=== PATIENT | male | born 2000 | race Caucasian/White ===

== ENCOUNTER 2022-03-02 07:49 | Emergency (ER) | payer OTHER ==
[2022-03-02] MEDS ORDERED: CEPHALEXIN500 M1 PO ×2 (09:45→18:53)
[2022-03-02] MEDS ORDERED: BACTRIM DS TAB1 EACH PO ×2 (09:45→18:53)
== END 2022-03-02 10:50 | disposition home or self-care (01) ==
LOC: ER1 07:49
DX: L02.414 Cutaneous abscess of left upper limb (principal); F17.210 Nicotine dependence, cigarettes, uncomplicated
CPT/HCPCS: 10060; 87070; 87077; 87186; 87205; 99283